=== PATIENT | male | born 1995 | race Two or more races ===

== ENCOUNTER 2022-08-22 01:34 | Emergency (ER) | payer OTHER ==
[2022-08-22] MEDS ORDERED: Lidocaine 1% 5 ML VIAL INJECT ONE (02:03)
[2022-08-22] MEDS ORDERED: Bacitracin Oint 1 GM U/D Packet TOP ONE (02:03)
[2022-08-22] MEDS ORDERED: Diphtheria,Pertussis(Acell),Tetanus Vaccine 0.5 ML Syringe IM ONE (02:25)
== END 2022-08-22 02:45 | disposition home or self-care (01) ==
LOC: JP.ED 01:34
DX: S61.412A Laceration without foreign body of left hand, initial encounter (principal); F17.210 Nicotine dependence, cigarettes, uncomplicated; Z23 Encounter for immunization; W26.8XXA Contact with other sharp object(s), not elsewhere classified, initial encounter
CPT/HCPCS: 12002; 90471; 90715; 99282; 99282-25

== ENCOUNTER 2022-10-23 21:45 | Emergency (ER) | payer SELFPAY ==
[2022-10-23] MEDS ORDERED: Proparacaine 0.5% Ophth Soln 15 ML Bottle EYERT ONE (23:01)
== END 2022-10-23 23:46 | disposition home or self-care (01) ==
LOC: JP.ED 21:45
DX: T15.01XA Foreign body in cornea, right eye, initial encounter (principal)
CPT/HCPCS: 99283; A9270

== ENCOUNTER 2025-07-30 21:06 | Emergency (ER) | payer BC ==
[2025-07-30] MEDS: Bacitracin Oint 1 GM U/D Packet TOP ONE (21:48)
== END 2025-07-30 23:01 | disposition home or self-care (01) ==
LOC: JP.ED 21:06
DX: S61.217A Laceration without foreign body of left little finger without damage to nail, initial encounter (principal); W26.0XXA Contact with knife, initial encounter
CPT/HCPCS: 12001; 99282; 99283; J2003